=== PATIENT | female | born 1970 | race Caucasian/White ===

== ENCOUNTER → 2016-06-24 | Outpatient (CLI) | payer BC ==
[2016-06-24 14:13] VITALS: BP 141/75; PULSE 87; RESP 14; TEMP 98.2; BMI 62.4
[2016-06-24 14:56] LABS: EKG EKG PERFORMED
--- NOTE | 2016-06-24 15:12 | P.HPBAR ---
Bariatric H&P - History & Physicial H&P Date: 06/24/16 History & Physicial: Visit/CC: sleeve consult Patient initial contact: 06/10/16 Initial weight: 157.351 kg Initial weight in pounds: 346.90 Height: 5 ft 2.5 in Initial BMI: 62.4 Last weight: Current weight: 157.351 kg Current weight in pounds: 346.90 Current BMI: 62.4 [place] body weight (based on NIH guidelines): 51.029 kg Excess body weight loss: 0.0% The patient is a 46 year-old F who presents for Bariatric Assessment. Patient presents today for sleeve consultation. She has had lifetime problems obesity. Her has scant proxy 70 pounds over the last 8 years. Her BMI today is 62. She currently weighs 346 pounds. Review of Systems Constitutional: Reports as per HPI Past Medical History Past Medical History: GERD/Reflux, Osteoarthritis (OA) Additional Past Medical History / Comment(s): Degenerative disc disease L4-5, Celiac disease, urinary stress incontinence History of Any Multi-Drug Resistant Organisms: None Reported Additional Past Surgical History / Comment(s): Neuroma removed on Right foot in 1996 Past Anesthesia/Blood Transfusion Reactions: No Reported Reaction Additional Past Anesthesia/Blood Transfusion Reaction / Comm: NO blood transfusion reported Past Psychological History: No Psychological Hx Reported Smoking Status: Never smoker Past Alcohol Use History: None Reported Past Drug Use History: None Reported - Past Family History Mother Family Medical History: Diabetes Mellitus, Osteoarthritis (OA) Additional Family Medical History / Comment(s): Type 2 DM, aortic stenosis secondary to childhood rheumatic fever Father Family Medical History: No Reported History Surgical - Exam Vital Signs Temp Pulse Resp BP 98.2 F 87 14 141/75 06/24/16 14:00 06/24/16 14:00 06/24/16 14:00 06/24/16 14:00 - General well developed, no distress - Eyes PERRL - ENT normal pinna - Neck no masses - Respiratory normal expansion - Cardiovascular Rhythm: regular - Abdomen Abdomen: soft, non tender Bariatric Assessment & Plan Plan: Morbid obesity with BMI of 63. Patient will undergo EGD. She'll need to obtain insurance authorization prior to scheduling her laparoscopic sleeve gastric. She is scheduled see Dr. nieves this week. Bariatric Checklist Checklist: Plan: Checklist: EGD: 1. Hiatal hernia: 2. H. Pylori: HgbA1c: Vitamin D: Smoking: Never smoker Primary care physician referral: wilman yeager Psychiatry clearance: Cardiology clearance: Sleep study: Diet journal: VTE risk score: VTE risk level: Rehab needs at discharge:
[2016-06-24 15:28] LABS: Anisocytosis Slight; CH 23.6; CHCM 31.2; HCT 42.7 % (34.0-46.0); HDW 2.75; HGB 12.8 gm/dL (11.4-16.0); Hypochromasia Slight; MCH 22.8 pg (25.0-35.0); MCHC 29.9 g/dL (31.0-37.0); MCV 76.2 fL (80.0-100.0); Mean Platelet Volume 7.1; Microcytosis Slight; RDW 17.3 % (11.5-15.5); WBC 16.4 k/uL (3.8-10.6)
[2016-06-24 15:42] LABS: ALT 24 U/L (9-52); AST 17 U/L (14-36); Alkaline Phosphatase 83 U/L (38-126); Anion Gap 12 mmol/L; Blood Urea Nitrogen 7 mg/dL (7-17); Calcium 9.5 mg/dL (8.4-10.2); Carbon Dioxide 27 mmol/L (22-30); Chloride 103 mmol/L (98-107); Glucose 79 mg/dL (74-99); Non-African American GFR(MDRD) >60 (>60 ml/min/1.73 sqM); Potassium 4.5 mmol/L (3.5-5.1); Sodium 142 mmol/L (137-145); Total Bilirubin 0.4 mg/dL (0.2-1.3); Total Protein 7.6 g/dL (6.3-8.2)
[2016-06-24 20:23] LABS: Hemoglobin A1C 5.8 % (4.2-6.1)
== END | disposition home or self-care (01) ==
LOC: BARWHC3 13:15
PROVIDERS: ATTEND Surgery
DX: Z01.818 Encounter for other preprocedural examination (principal); E66.01 Morbid (severe) obesity due to excess calories; Z68.44 Body mass index [BMI] 60.0-69.9, adult
CPT/HCPCS: 80053; 82306; 83036; 85027; 93005; 99201

== ENCOUNTER 2016-07-05 08:05 | Day surgery (SDC) | payer BC ==
[2016-07-02 15:07] VITALS: BMI 61.6
[~2016-07-05 08:05] MED LIST: LACTATED RINGERS 1,000 ML IV SCH
[2016-07-05 08:36] VITALS: RESP 16; TEMP 98.1
[2016-07-05] MEDS ORDERED: LIDOCAINE 1% 20 ML VIAL (10MG/ML) FOR IV START INTRADERMA ONE (08:43)
[2016-07-05] MEDS ORDERED: PROPOFOL 10 MG/ML 20 ML VIAL IV ONE (09:10)
--- NOTE | 2016-07-05 09:10 | P.GSHP ---
History of Present Illness H&P Date: 07/05/16 Chief Complaint: GERD, morbid obesity This a 38-year-old female who presents today for EGD. She is undergoing workup for sleeve gastrectomy. She has a history of GERD. Her BMI is 62 - Constitutional Constitutional: Reports as per HPI Past Medical History Past Medical History: Deep Vein Thrombosis (DVT), GERD/Reflux, Osteoarthritis ( OA) Additional Past Medical History / Comment(s): Degenerative disc, Celiac disease , occ. urinary stress incontinence, hiatal hernia, uterine fibroids History of Any Multi-Drug Resistant Organisms: None Reported Additional Past Surgical History / Comment(s): Neuroma removed on Right foot Past Anesthesia/Blood Transfusion Reactions: Motion Sickness Additional Past Anesthesia/Blood Transfusion Reaction / Comment(s): . Past Psychological History: No Psychological Hx Reported Smoking Status: Never smoker Past Alcohol Use History: None Reported Past Drug Use History: None Reported - Past Family History Mother Family Medical History: No Reported History Additional Family Medical History / Comment(s): . Father Family Medical History: No Reported History Medications and Allergies Home Medications Medication Instructions Recorded Confirmed Type Carisoprodol [Soma] 500 mg PO TID PRN 06/24/16 07/05/16 History HYDROcodone/APAP 7.5-325MG [[place] 1 tab PO Q8HR PRN 06/24/16 07/05/16 History 7.5-325] Ibuprofen [Motrin] 800 mg PO Q6H PRN 06/24/16 07/02/16 History Cholecalciferol (Vitamin D3) 20,000 unit PO DAILY 07/02/16 07/05/16 History [Vitamin D3] Multivitamins, Thera [Multivitamin] 1 tab PO DAILY 07/02/16 07/05/16 History Allergies Allergy/AdvReac Type Severity Reaction Status Date / Time cefaclor [From Ceclor] Allergy Rash/Hives Verified 07/05/16 08:27 clarithromycin [From Biaxin] Allergy Rash/Hives Verified 07/05/16 08:27 egg Allergy Diarrhea Verified 07/05/16 08:27 gluten Allergy Unknown Verified 07/05/16 08:27 Milk Containing Products Allergy Diarrhea Verified 07/05/16 08:27 [Dairy] Surgical - Exam Vital Signs Temp Pulse Resp BP Pulse Ox 98.1 F 78 16 150/81 99 07/05/16 08:35 03/10/17 08:35 07/05/16 08:35 07/05/16 08:35 07/05/16 08:35 - General well developed, no distress - Eyes PERRL - ENT normal pinna - Neck no masses - Respiratory normal expansion - Cardiovascular Rhythm: regular - Abdomen Abdomen: soft, non tender Assessment and Plan Plan: GERD Morbid obesity We'll perform EGD.
--- NOTE | 2016-07-05 09:18 | P.OP ---
Date of Procedure: 07/05/16 Preoperative Diagnosis: GERD Morbid obesity Postoperative Diagnosis: Mild antral gastritis Esophageal biopsy pathology pending Procedure(s) Performed: EGD Anesthesia: MAC Surgeon: Te Goodson Pathology: other (Antrum, esophagus) Condition: stable Disposition: PACU Description of Procedure: The patient's placed on the endoscopy table lateral position. She received IV sedation. The gastroscope some placed oropharynx passed into the esophagus and into the stomach. Scope was then placed through the pylorus. The first and second portion of the duodenum appeared normal. The scope was then brought back the antrum and this appeared mildly inflamed. A biopsies was performed. The scope was then retroflexed and the remainder of the stomach appeared normal. There is no significant hiatal hernia. The GE junction was at 40 cm. The distal esophagus appeared minimally inflamed a biopsies performed. The proximal esophagus appeared normal. The scope was withdrawn for patient.
[2016-07-05 09:41] VITALS: BP 116/64; PULSE 71
== END 2016-07-05 09:59 | disposition home or self-care (01) ==
LOC: ORWHC2ENDO 08:05
PROVIDERS: ATTEND Surgery
DX: K21.0 Gastro-esophageal reflux disease with esophagitis (principal); K29.50 Unspecified chronic gastritis without bleeding; M19.90 Unspecified osteoarthritis, unspecified site; E66.01 Morbid (severe) obesity due to excess calories; Z68.44 Body mass index [BMI] 60.0-69.9, adult; Z88.1 Allergy status to other antibiotic agents; Z91.012 Allergy to eggs; Z91.02 Food additives allergy status; Z91.011 Allergy to milk products; Z79.1 Long term (current) use of non-steroidal anti-inflammatories (NSAID); Z79.899 Other long term (current) drug therapy
CPT/HCPCS: 43239; 81025; 88305; 88342; J2704

== ENCOUNTER → 2016-08-26 | Outpatient (CLI) | payer BC ==
[2016-08-26 15:26] VITALS: BP 129/63; PULSE 83; RESP 16; TEMP 98.2; BMI 63.6
--- NOTE | 2016-08-26 16:21 | P.HPBAR ---
Bariatric H&P - History & Physicial H&P Date: 08/26/16 History & Physicial: Visit/CC: Working on Criteria Patient initial contact: 06/10/16 Initial weight: 157.351 kg Initial weight in pounds: 346.90 Height: 5 ft 2.5 in Initial BMI: 62.4 Last weight: Current weight: 160.232 kg Current weight in pounds: 353.00 Current BMI: 63.6 [place] body weight (based on NIH guidelines): 51.029 kg Excess body weight loss: The patient is a 46 year-old F who presents for Bariatric Assessment. Patient presents for presurgical consultation. She is undergoing workup for sleeve gastrectomy. Had multiple problems with comorbidities related to morbid obesity. Her current BMI 64. Past Medical History Past Medical History: Deep Vein Thrombosis (DVT), GERD/Reflux, Osteoarthritis ( OA) Additional Past Medical History / Comment(s): Degenerative disc, Celiac disease , occ. urinary stress incontinence, hiatal hernia, uterine fibroids History of Any Multi-Drug Resistant Organisms: None Reported Additional Past Surgical History / Comment(s): Neuroma removed on Right foot Past Anesthesia/Blood Transfusion Reactions: Motion Sickness Additional Past Anesthesia/Blood Transfusion Reaction / Comm: . Past Psychological History: No Psychological Hx Reported Smoking Status: Never smoker Past Alcohol Use History: None Reported Past Drug Use History: None Reported - Past Family History Mother Family Medical History: No Reported History Additional Family Medical History / Comment(s): . Father Family Medical History: No Reported History Surgical - Exam Vital Signs Temp Pulse Resp BP 98.2 F 83 16 129/63 08/26/16 15:24 08/26/16 15:24 08/26/16 15:24 08/26/16 15:24 - General well developed, no distress - Eyes PERRL - ENT normal pinna - Neck no masses - Respiratory normal expansion - Cardiovascular Rhythm: regular - Abdomen Abdomen: soft, non tender Bariatric Assessment & Plan Plan: Morbid obesity with BMI 64. Patient be scheduled for sleeve gastrectomy once her insurance authorization is been performed. However the risk and benefits of the procedure with the patient. Bariatric Checklist Checklist: Plan: Checklist: EGD: 1. Hiatal hernia: 2. H. Pylori: HgbA1c: Vitamin D: Smoking: Never smoker Primary care physician referral: wilman yeager Psychiatry clearance: Cardiology clearance: Sleep study: Diet journal: VTE risk score: VTE risk level: Rehab needs at discharge:
== END | disposition home or self-care (01) ==
LOC: BARWHC3 14:25
PROVIDERS: ATTEND Surgery
DX: Z01.818 Encounter for other preprocedural examination (principal); E66.01 Morbid (severe) obesity due to excess calories; Z68.44 Body mass index [BMI] 60.0-69.9, adult
CPT/HCPCS: 99211

== ENCOUNTER → 2016-09-16 | Outpatient (CLI) | payer BC ==
[2016-09-16 14:04] VITALS: BMI 63.3
== END | disposition home or self-care (01) ==
LOC: BARWHC3 08:48
PROVIDERS: ATTEND Surgery
DX: Z71.3 Dietary counseling and surveillance (principal); E66.01 Morbid (severe) obesity due to excess calories; Z68.44 Body mass index [BMI] 60.0-69.9, adult
CPT/HCPCS: 97804

== ENCOUNTER → 2016-10-16 | Outpatient (CLI) | payer BC ==
[2016-10-16 16:29] LABS: Anisocytosis Slight; Basophils # (A) 0.1 k/uL (0-0.2); Basophils % (A) 1 %; CH 24.9; CHCM 31.3; Eosinophils # (A) 0.3 k/uL (0-0.7); Eosinophils % (A) 2 %; HCT 44.5 % (34.0-46.0); HDW 2.55; HGB 13.7 gm/dL (11.4-16.0); Hypochromasia Slight; Luc # (Auto) 0.12; Luc % (Auto) 1; Lymphocytes # (A) 1.9 k/uL (1.0-4.8); Lymphocytes % (A) 16 %; MCH 24.6 pg (25.0-35.0); MCHC 30.8 g/dL (31.0-37.0); MCV 79.7 fL (80.0-100.0); Mean Platelet Volume 6.6; Microcytosis Slight; Monocytes # (A) 0.5 k/uL (0-1.0); Monocytes % (A) 4 %; Neutrophils # (A) 9.2 k/uL (1.3-7.7); Neutrophils % (A) 76 %; RBC 5.58 m/uL (3.80-5.40); RDW 16.6 % (11.5-15.5); WBC (Perox) 12.17
[2016-10-16 16:42] LABS: ALT 32 U/L (9-52); AST 24 U/L (14-36); Alkaline Phosphatase 77 U/L (38-126); Anion Gap 12 mmol/L; Blood Urea Nitrogen 9 mg/dL (7-17); Calcium 9.6 mg/dL (8.4-10.2); Carbon Dioxide 25 mmol/L (22-30); Chloride 102 mmol/L (98-107); Glucose 88 mg/dL (74-99); Non-African American GFR(MDRD) >60 (>60 ml/min/1.73 sqM); Potassium 4.2 mmol/L (3.5-5.1); Sodium 139 mmol/L (137-145); Total Bilirubin 0.6 mg/dL (0.2-1.3); Total Protein 7.3 g/dL (6.3-8.2)
== END | disposition home or self-care (01) ==
LOC: LABPAT 15:46
PROVIDERS: ATTEND Surgery
DX: Z01.812 Encounter for preprocedural laboratory examination (principal)
CPT/HCPCS: 80053; 85025

== ENCOUNTER 2016-10-22 09:56 | Inpatient (IN) | payer BC ==
[~2016-10-22 09:56] MED LIST changes: +CLINDAMYCIN 900 MG in DEXTROSE 5% IN WATER 50 ML IVPB ONE; +DEXAMETHASONE SOD PHOSPHATE 10 MG/ML 1 ML VIAL IV ONE; +GENTAMICIN 480 MG in SODIUM CHLORIDE 0.9% 100 ML IVPB ONE; +MIDAZOLAM 2 MG/2 ML VIAL IV PRN; +SCOPOLAMINE 1.5MG/72HR PATCH TRANSDERM ONE
[2016-10-22] MEDS ORDERED: GENTAMICIN IN NACL ISO-OSM PMX 80 MG in SALINE 1 100ML.BAG IVPB STA (10:03)
[2016-10-22] MEDS ORDERED: ENOXAPARIN 40 MG/0.4 ML SYRINGE SQ STA (10:16)
[2016-10-22] MEDS: ONDANSETRON 4 MG/2 ML VIAL IVP ONE ×2 (10:20→14:12)
[2016-10-22] MEDS ORDERED: LIDOCAINE 1% 20 ML VIAL (10MG/ML) FOR IV START SQ ONE (10:29)
--- NOTE | 2016-10-22 11:13 | P.GSHP ---
History of Present Illness H&P Date: 10/22/16 Chief Complaint: Morbid obesity with severe comorbidities This is a 38-year-old female who presents today for laparoscopic sleeve gastrectomy. Patient has had lifetime problems cc. Her BMI is 61. Patient presents today for laparoscopic sleeve gastrectomy. Patient went risks of surgery including injury to the stomach liver spleen. He is also a risk of gastric staple line disruption, bleeding or scarring. - Constitutional Constitutional: Reports as per HPI Past Medical History Past Medical History: Deep Vein Thrombosis (DVT), GERD/Reflux, Osteoarthritis ( OA) Additional Past Medical History / Comment(s): DDD, Celiac disease, occ. urinary stress incontinence, hiatal hernia, uterine fibroids, had DVT 10 yrs ago after tx. for varicose veins History of Any Multi-Drug Resistant Organisms: None Reported Additional Past Surgical History / Comment(s): Neuroma removed on Right foot, recent EGD Past Anesthesia/Blood Transfusion Reactions: Motion Sickness Additional Past Anesthesia/Blood Transfusion Reaction / Comment(s): . Smoking Status: Never smoker - Past Family History Mother Family Medical History: No Reported History Additional Family Medical History / Comment(s): . Father Family Medical History: No Reported History Medications and Allergies Home Medications Medication Instructions Recorded Confirmed Type Carisoprodol [Soma] 500 mg PO TID PRN 06/24/16 10/22/16 History HYDROcodone/APAP 7.5-325MG [[place] 1 tab PO Q8HR PRN 06/24/16 10/22/16 History 7.5-325] Cholecalciferol (Vitamin D3) 20,000 unit PO DAILY 07/02/16 10/22/16 History [Vitamin D3] Multivitamins, Thera [Multivitamin] 1 tab PO DAILY 07/02/16 10/22/16 History Allergies Allergy/AdvReac Type Severity Reaction Status Date / Time cefaclor [From Ceclor] Allergy Rash/Hives Verified 10/22/16 10:15 clarithromycin [From Biaxin] Allergy Rash/Hives Verified 10/22/16 10:15 egg Allergy Diarrhea Verified 10/22/16 10:15 gluten Allergy Unknown Verified 10/22/16 10:15 Milk Containing Products Allergy Diarrhea Verified 10/22/16 10:15 [Dairy] Surgical - Exam Vital Signs Temp Pulse Resp BP Pulse Ox 98.0 F 82 16 133/76 98 10/22/16 10:17 10/22/16 10:17 10/22/16 10:17 10/22/16 10:17 10/22/16 10:17 - General well developed, no distress - Eyes PERRL - ENT normal pinna - Neck no masses - Respiratory normal expansion - Cardiovascular Rhythm: regular - Abdomen Abdomen: soft, non tender Assessment and Plan Plan: Morbid obesity with severe comorbidities. We'll perform laparoscopic sleeve gastrectomy.
[2016-10-22] MEDS ORDERED: METHYLENE BLUE 15 MG in DEXTROSE 5% IN WATER 500 ML IRRIGATION ONE ×2 (11:39)
[2016-10-22] MEDS ORDERED: HYDROmorphone (PF) 1 MG/ML ONE (12:02)
[2016-10-22] MEDS ORDERED: LIDOCAINE 1% INJ 10MG/ML (20 ML MDV) ONE (12:02)
[2016-10-22] MEDS ORDERED: SUCCINYLCHOLINE CHLORIDE 100 MG/5 ML SYR IV ONE (12:02)
[2016-10-22] MEDS ORDERED: GLYCOPYRROLATE 0.2 MG/ML 2 ML VIAL ONE (12:02)
[2016-10-22] MEDS ORDERED: ROCURONIUM BROMIDE 10 MG/ML 10 ML VIAL IV ONE (12:02)
[2016-10-22] MEDS ORDERED: MIDAZOLAM 2 MG/2 ML VIAL ONE (12:02)
[2016-10-22] MEDS ORDERED: fentaNYL (PF) 50 MCG/ML 2 ML AMP ONE (12:02)
[2016-10-22] MEDS ORDERED: PROPOFOL 10 MG/ML 20 ML VIAL IV ONE (12:02)
[2016-10-22] MEDS ORDERED: NEOSTIGMINE 1 MG/ML 10 ML VIAL ONE (12:02)
[2016-10-22] MEDS ORDERED: BUPIVACAIN-EPI 0.5%-1:200,000 30 ML VIAL SQ ONE (12:39)
[2016-10-22] MEDS ORDERED: NALOXONE 0.4 MG/ML 1 ML VIAL IV PRN (13:26)
--- NOTE | 2016-10-22 13:26 | P.OP ---
Date of Procedure: 10/22/16 Preoperative Diagnosis: Moderate obesity BMI 61 Postoperative Diagnosis: Morbid obesity Procedure(s) Performed: Laparoscopic sleeve gastrectomy. Laparoscopic repair of hiatal hernia Implants: Anesthesia: EWELINA Surgeon: Te Goodson Estimated Blood Loss (ml): 5 Pathology: other (Stomach) Condition: stable Disposition: PACU Indications for Procedure: Operative Findings: Description of Procedure: The patient was placed on the operating room table in the supine position. She received general anesthesia and then was placed in dorsal lithotomy position. Her abdomen was prepped and draped in sterile fashion. The skin incision sites were anesthetized 1% local Xylocaine. And then the skin was incised with an 11 blade in the left lateral position. Using a blade less trocar under direct visualization the peritoneal cavity was entered. The abdomen was insufflated and then a 5 mm laparoscope was placed into the peritoneal cavity. A 5 mm trocar was placed in the right epigastric, and right lateral position. A 15 mm trocar was placed in the supra-umbilical position and another 5 mm trocar was placed in the left lateral position. The left lateral lobe of the liver was retracted. The stomach was visualized. The greater curvature of the stomach was then dissected using the Harmonic scissors. The dissection occurred approximately 5 cm from the pylorus to the level of the left ellis. There was a small hiatal hernia seen. The hiatal hernia was repaired using 2-0 Ethibond suture in the retrocrural fashion. At this point a 40-Yi bougie dilator was placed the oropharynx and passed into the esophagus and into the stomach by the PASTRY MIXER. The sleeve gastrectomy was performed by using the powered echelon stapler with a seam guard buttress material. Sequential firings of the stapler were performed. The gastric remnant was then brought out through the 15 mm trocar site. The dilator was withdrawn. And a orogastric tube was replaced into the stomach. The stomach was insufflated with 200 mL of methylene blue normal saline. There was no evidence of extravasation. The abdomen was irrigated there is no bleeding seen. The Alexy-Ho device was used to close the 15 mm trocar with 0 Vicryl. Skin was closed with interrupted 3-0 Monocryl sutures once the trochars withdrawn. Dermabond dressing was applied. Patient was sent to recovery in stable condition.
[2016-10-22] MEDS ORDERED: LACTATED RINGERS 1,000 ML IV ONE (13:35)
[2016-10-22] MEDS: HYDROmorphone 1 MG/ML 1 ML SYRINGE IVP PRN ×4 (14:01→21:25)
[2016-10-22] MEDS: KETOROLAC 30 MG/ML 1 ML VIAL IVP SCH ×3 (14:20→23:50)
[2016-10-22] MEDS ORDERED: PROMETHAZINE INJ 25 MG/ML 1 ML VIAL IVPB ONE (14:24)
[2016-10-22] MEDS ORDERED: ACETAMINOPHEN IV (For NPO) 1,000 MG in EMPTY BAG 1 BAG IVPB ONE (15:00)
[2016-10-22] MEDS: ALBUTEROL NEBULIZED 2.5 MG/3 ML INHALATION SCH ×2 (15:23→19:15)
[2016-10-22] MEDS: 0.9% NACL WITH KCL 20 MEQ/L 1,000 ML IV SCH ×3 (17:04→23:50)
[2016-10-22] MEDS: ONDANSETRON 4 MG/2 ML VIAL IVP PRN (18:23)
[2016-10-22] MEDS: CLINDAMYCIN 900 MG in DEXTROSE 5% IN WATER 50 ML IVPB SCH ×2 (19:50)
[2016-10-22 20:30] VITALS: BMI 61.0
[2016-10-23] MEDS: CLINDAMYCIN 900 MG in DEXTROSE 5% IN WATER 50 ML IVPB SCH ×2 (03:47)
[2016-10-23] MEDS: KETOROLAC 30 MG/ML 1 ML VIAL IVP SCH ×3 (06:01→17:18)
[2016-10-23] MEDS: 0.9% NACL WITH KCL 20 MEQ/L 1,000 ML IV SCH (06:01)
[2016-10-23 06:34] LABS: Anisocytosis Slight; Basophils % (A) 0 %; CH 24.1; CHCM 30.1; Eosinophils # (A) 0.1 k/uL (0-0.7); Eosinophils % (A) 1 %; HCT 41.6 % (34.0-46.0); HDW 2.52; HGB 12.5 gm/dL (11.4-16.0); Hypochromasia Marked; Luc # (Auto) 0.14; Luc % (Auto) 1; Lymphocytes % (A) 6 %; MCH 24.1 pg (25.0-35.0); MCHC 29.9 g/dL (31.0-37.0); MCV 80.6 fL (80.0-100.0); Mean Platelet Volume 7.1; Monocytes # (A) 0.8 k/uL (0-1.0); Monocytes % (A) 5 %; Neutrophils # (A) 15.1 k/uL (1.3-7.7); Neutrophils % (A) 88 %; RBC 5.16 m/uL (3.80-5.40); RDW 16.5 % (11.5-15.5); WBC 17.1 k/uL (3.8-10.6); WBC (Perox) 16.39
[2016-10-23 06:45] LABS: Anion Gap 10 mmol/L; Blood Urea Nitrogen 6 mg/dL (7-17); Calcium 8.6 mg/dL (8.4-10.2); Carbon Dioxide 18 mmol/L (22-30); Chloride 110 mmol/L (98-107); Magnesium 2.1 mg/dL (1.6-2.3); Non-African American GFR(MDRD) >60 (>60 ml/min/1.73 sqM); Phosphorous 3.5 mg/dL (2.5-4.5); Sodium 138 mmol/L (137-145)
[2016-10-23] MEDS: ALBUTEROL NEBULIZED 2.5 MG/3 ML INHALATION SCH ×3 (08:19→15:44)
--- NOTE | 2016-10-23 08:54 | FL ---
EXAMINATION TYPE: FL UGI DATE OF EXAM: 10/23/2016 CLINICAL HISTORY: Status post gastric sleeve Contrast: Omnipaque 350 50 mL The patient ingested contrast without difficulty or delay. Noted are postsurgical changes of gastric sleeve. There is no evidence for leak or obstruction. Contrast is noted within the duodenum. IMPRESSION: Post-surgical change of gastric sleeve without evidence for obstruction or leak at this point in time.
[2016-10-23] MEDS ORDERED: PANTOPRAZOLE 40 MG/10 ML VIAL IV SCH (09:00)
[2016-10-23] MEDS ORDERED: ENOXAPARIN 60 MG/0.6 ML SYRINGE SQ SCH (09:00)
[2016-10-23] MEDS: ONDANSETRON 4 MG/2 ML VIAL IVP PRN (11:21)
[2016-10-23] MEDS: HYDROmorphone 1 MG/ML 1 ML SYRINGE IVP PRN ×2 (11:26→15:55)
[2016-10-23 14:49] VITALS: BP 138/73; PULSE 70; RESP 16; TEMP 96.5
[2016-10-23] MEDS ORDERED: 0.9% NACL WITH KCL 20 MEQ/L 1,000 ML IV SCH (15:00)
--- NOTE | 2016-10-23 17:43 | P.HPIM ---
History of Present Illness H&P Date: 10/23/16 Chief Complaint: Morbid obesity Caren Lr is a 38-year-old female who was admitted for laparoscopic sleeve gastrectomy. Patient has had lifetime problems with morbid obesity Her BMI is 61. Patient underwent laparoscopic sleeve gastrectomy with Dr. Goodson No reported complications Patient has a past medical history significant for deep venous thrombosis in the past was a fascial reflux disease and osteoarthritis Past Medical History Past Medical History: Deep Vein Thrombosis (DVT), GERD/Reflux, Osteoarthritis ( OA) Additional Past Medical History / Comment(s): DDD, Celiac disease, occ. urinary stress incontinence, hiatal hernia, uterine fibroids, had DVT 10 yrs ago after tx. for varicose veins History of Any Multi-Drug Resistant Organisms: None Reported Additional Past Surgical History / Comment(s): Neuroma removed on Right foot, recent EGD, LAPAROSCOPIC SLEEVE GASTRECTOMY 10/22/2016 Past Anesthesia/Blood Transfusion Reactions: Motion Sickness Additional Past Anesthesia/Blood Transfusion Reaction / Comment(s): . Past Psychological History: No Psychological Hx Reported Smoking Status: Never smoker - Past Family History Mother Family Medical History: No Reported History Additional Family Medical History / Comment(s): . Father Family Medical History: No Reported History Medications and Allergies Home Medications Medication Instructions Recorded Confirmed Type Carisoprodol [Soma] 350 mg PO BID 06/24/16 10/22/16 History HYDROcodone/APAP 7.5-325MG [[place] 1 tab PO Q8HR PRN 06/24/16 10/22/16 History 7.5-325] Cholecalciferol (Vitamin D3) 20,000 unit PO DAILY 07/02/16 10/22/16 History [Vitamin D3] Multivitamins, Thera [Multivitamin] 1 tab PO DAILY 07/02/16 10/22/16 History Allergies Allergy/AdvReac Type Severity Reaction Status Date / Time cefaclor [From Ceclor] Allergy Rash/Hives Verified 10/22/16 17:20 clarithromycin [From Biaxin] Allergy Rash/Hives Verified 10/22/16 17:20 egg Allergy Diarrhea Verified 10/22/16 17:20 gluten Allergy Unknown Verified 10/22/16 17:20 Milk Containing Products Allergy Diarrhea Verified 10/22/16 17:20 [Dairy] Physical Exam Vitals: Vital Signs Temp Pulse Pulse Pulse Resp BP Pulse Ox 10/23/16 15:46 84 70 16 10/23/16 14:48 96.5 F L 70 16 138/73 95 10/23/16 12:00 18 10/23/16 09:49 91 L 10/23/16 08:00 84 10/23/16 07:36 84 10/23/16 07:13 98.1 F 84 84 18 113/63 95 10/23/16 02:35 86 L 10/23/16 02:15 97 10/23/16 01:30 98 F 74 16 144/77 96 10/22/16 19:35 98.2 F 103 H 16 141/71 97 10/22/16 19:24 70 10/22/16 19:15 90 Intake and Output 10/23/16 10/23/16 10/23/16 06:59 14:59 22:59 Intake Total 1320 1000 Balance 1320 1000 Intake: Intake, IV Titration 1200 1000 Amount 0.9% NaCl with KCl 20 Meq 1000 /l 1,000 ml @ 125 mls/hr IV .Q8H [facility] Rx#:[id number] 0.9% NaCl with KCl 20 Meq 1200 /l 1,000 ml @ 150 mls/hr IV .Q6H40M [facility] Rx#: [id number] Oral 120 Other: Voiding Method Toilet # Voids 1 Weight 156.1 kg Patient Weight 10/24/16 06:59 Weight 156.1 kg In general patient is alert and oriented 3 in no apparent distress HEENT head normocephalic and atraumatic Neck is supple no JVD no goiter no lymphadenopathy Chest exam reveals a few scattered crackles in both lung brown no wheezing Cardiac exam reveals regular heart sounds S1 and S2 no gallops no murmurs Abdomen is soft nontender no organomegaly Extremity exam reveals minimal edema no cyanosis or clubbing Results CBC & Chem 7: 10/23/16 06:13 10/23/16 06:13 Labs: Abnormal Lab Results - Last 24 Hours (Table) 10/23/16 10/23/16 Range/Units 06:13 06:13 WBC 17.1 H (3.8-10.6) k/uL MCH 24.1 L (25.0-35.0) pg MCHC 29.9 L (31.0-37.0) g/dL RDW 16.5 H (11.5-15.5) % Neutrophils # 15.1 H (1.3-7.7) k/uL Chloride 110 H (98-107) mmol/L Carbon Dioxide 18 L (22-30) mmol/L BUN 6 L (7-17) mg/dL Thrombosis Risk Factor Assmnt - Choose All That Apply Any of the Below Risk Factors Present?: Yes Each Factor Represents 1 point: Age 41-60 years Other Risk Factors: Yes Each Risk Factor Represents 2 Points: Laparoscopic surgery Each Risk Factor Represents 3 Points: History of DVT/PE Other congenital or acquired thrombophilia - If yes, enter type in comment: Yes Each Risk Factor Represents 5 Points: Major surgery lasting over 3 hours Thrombosis Risk Factor Assessment Total Risk Factor Score: 11 Thrombosis Risk Factor Assessment Level: High Risk Assessment and Plan Plan: #1 severe morbid obesity BMI 61 patient underwent laparoscopic sleeve gastrectomy, no reported complications patient is doing well postoperatively #2 underlying history of gastroesophageal reflux disease #3 underlying history of osteoarthritis #4 remote history of DVT more than 10 years ago At this time medication and labs were reviewed continue was current management also been discharged to home today by surgery
--- NOTE | 2016-10-23 19:22 | P.DS ---
Providers Date of admission: 10/22/16 09:56 Expected date of discharge: 10/23/16 Attending physician: Te Goodson Consults: 10/22/16 13:26 Consult Physician Routine Consulting Provider: Ada Uribe Consult Reason/Comments: Medical management Do you want consulting provider notified?: Yes Primary care physician: Stated None Hospital Course: This is a 38-year-old female with morbid obesity. Her BMI 61. Patient underwent laparoscopic sleeve gastrectomy. Her postoperative stay was unremarkable. Please see hospital chart for details. Procedures: Laparoscopic sleeve gastrectomy Patient Condition at Discharge: Good Plan - Discharge Summary New Discharge Prescriptions: New HYDROcodone/APAP 7.5-325MG [[place] 7.5-325] 1 tab PO Q4H PRN #40 tab PRN Reason: Pain Ondansetron HCl [Zofran] 4 mg PO TID PRN #30 tablet PRN Reason: Nausea No Action HYDROcodone/APAP 7.5-325MG [[place] 7.5-325] 1 tab PO Q8HR PRN PRN Reason: Pain Carisoprodol [Soma] 350 mg PO BID Multivitamins, Thera [Multivitamin] 1 tab PO DAILY Cholecalciferol (Vitamin D3) [Vitamin D3] 20,000 unit PO DAILY Discharge Medication List Carisoprodol [Soma] 350 mg PO BID 06/24/16 [History] HYDROcodone/APAP 7.5-325MG [[place] 7.5-325] 1 tab PO Q8HR PRN 06/24/16 [History] Cholecalciferol (Vitamin D3) [Vitamin D3] 20,000 unit PO DAILY 07/02/16 [History ] Multivitamins, Thera [Multivitamin] 1 tab PO DAILY 07/02/16 [History] HYDROcodone/APAP 7.5-325MG [[place] 7.5-325] 1 tab PO Q4H PRN #40 tab 10/23/16 [Rx ] Ondansetron HCl [Zofran] 4 mg PO TID PRN #30 tablet 10/23/16 [Rx] Follow up Appointment(s)/Referral(s): Te Goodson MD [STAFF PHYSICIAN] - 11/04/16 2:30 pm ([facility]) Patient Instructions/Handouts: Nutrition after Bariatric Surgery (DC), Laparoscopic Sleeve Gastrectomy (DC) Activity/Diet/Wound Care/Special Instructions: Do not soak in tubs. Ok to shower POD 2. Do not drive while taking pain medications. Notify surgeon with any questions or concerns. Discharge Disposition: HOME SELF-CARE
== END 2016-10-23 18:19 | disposition home or self-care (01) | DRG 621 ==
LOC: 2ORWHC 09:56 → 3SUR 13:45
PROVIDERS: ADMIT Surgery; ATTEND Surgery
PROC: 0BQS4ZZ (ICD-10-PCS; principal; 2016-10-22 11:25)
PROC: 0BQR4ZZ (ICD-10-PCS; principal; 2016-10-22 11:25)
PROC: 0DB64Z3 Excision of Stomach, Percutaneous Endoscopic Approach, Vertical (ICD-10-PCS; principal; 2016-10-22 11:25)
DX: E66.01 Morbid (severe) obesity due to excess calories (principal); K90.0 Celiac disease; K44.9 Diaphragmatic hernia without obstruction or gangrene; Z68.44 Body mass index [BMI] 60.0-69.9, adult; K21.9 Gastro-esophageal reflux disease without esophagitis; I83.90 Asymptomatic varicose veins of unspecified lower extremity; D25.9 Leiomyoma of uterus, unspecified; M19.90 Unspecified osteoarthritis, unspecified site; N39.3 Stress incontinence (female) (male); Z88.1 Allergy status to other antibiotic agents; Z91.012 Allergy to eggs; Z86.718 Personal history of other venous thrombosis and embolism; Z91.02 Food additives allergy status; Z91.011 Allergy to milk products; Z79.891 Long term (current) use of opiate analgesic; Z79.899 Other long term (current) drug therapy; Z71.3 Dietary counseling and surveillance
CPT/HCPCS: 74240; 80051; 81025; 82310; 82565; 83735; 84100; 84520; 85025; 88307; 93005; 94640; 94760

== ENCOUNTER → 2016-11-04 | Outpatient (CLI) | payer BC ==
[2016-11-04 13:25] VITALS: BP 145/94; PULSE 98; TEMP 98.4; BMI 59.3
--- NOTE | 2016-11-04 16:36 | P.HPBAR ---
Bariatric H&P - History & Physicial H&P Date: 11/04/16 History & Physicial: Visit/CC: one year follow up Patient initial contact: 06/10/16 Initial weight: 157.351 kg Initial weight in pounds: 346.90 Height: 5 ft 2.5 in Initial BMI: 62.4 Last weight: Current weight: 149.459 kg Current weight in pounds: 329.50 Current BMI: 59.3 [place] body weight (based on NIH guidelines): 51.029 kg Excess body weight loss: 7.4% The patient is a 46 year-old F who presents for Bariatric Assessment. The patient presents today for gastric sleeve follow-up. She is approximately 2 weeks postop. She is doing quite well. She's had minimal GERD symptoms. She has no significant pain. Past Medical History Past Medical History: Deep Vein Thrombosis (DVT), GERD/Reflux, Osteoarthritis ( OA) Additional Past Medical History / Comment(s): DDD, Celiac disease, occ. urinary stress incontinence, hiatal hernia, uterine fibroids, had DVT 10 yrs ago after tx. for varicose veins History of Any Multi-Drug Resistant Organisms: None Reported Past Surgical History: Bariatric Surgery Additional Past Surgical History / Comment(s): Neuroma removed on Right foot, recent EGD, LAPAROSCOPIC SLEEVE GASTRECTOMY 10/22/2016 Past Anesthesia/Blood Transfusion Reactions: Motion Sickness Additional Past Anesthesia/Blood Transfusion Reaction / Comm: . Past Psychological History: No Psychological Hx Reported Smoking Status: Never smoker - Past Family History Mother Family Medical History: No Reported History Additional Family Medical History / Comment(s): . Father Family Medical History: No Reported History Surgical - Exam Vital Signs Temp Pulse BP 98.4 F 98 145/94 11/04/16 13:09 11/04/16 13:09 11/04/16 13:09 - General well developed, no distress - Eyes PERRL - ENT normal pinna - Neck no masses - Respiratory normal expansion - Cardiovascular Rhythm: regular - Abdomen Abdomen: soft, non tender Bariatric Assessment & Plan Plan: Patient's 2 weeks postop from sleeve gastrectomy. He is doing quite well. Patient met with the dietitian today. She'll follow-up in 2 weeks. Bariatric Checklist Checklist: Plan: Checklist: EGD: 1. Hiatal hernia: 2. H. Pylori: HgbA1c: Vitamin D: Smoking: Never smoker Primary care physician referral: wilman yeager Psychiatry clearance: Cardiology clearance: Sleep study: Diet journal: VTE risk score: VTE risk level: Rehab needs at discharge:
== END | disposition home or self-care (01) ==
LOC: BARWHC3 12:57
PROVIDERS: ATTEND Surgery
DX: Z09 Encounter for follow-up examination after completed treatment for conditions other than malignant neoplasm (principal); Z71.3 Dietary counseling and surveillance; Z98.84 Bariatric surgery status
CPT/HCPCS: 97803; 99211

== ENCOUNTER → 2016-11-18 | Outpatient (CLI) | payer BC ==
[2016-11-18 15:08] VITALS: BP 140/62; PULSE 75; TEMP 98.1; BMI 57.9
--- NOTE | 2016-11-18 17:00 | P.HPBAR ---
Bariatric H&P - History & Physicial H&P Date: 11/18/16 History & Physicial: Visit/CC: one month followup Patient initial contact: 06/10/16 Initial weight: 157.351 kg Initial weight in pounds: 346.90 Height: 5 ft 2.5 in Initial BMI: 62.4 Last weight: 324 Current weight: 146.057 kg Current weight in pounds: 322.00 Current BMI: 57.9 [place] body weight (based on NIH guidelines): 51.029 kg Excess body weight loss: 10.6% The patient is a 46 year-old F who presents for Bariatric Assessment. Patient presents today for sleep gastric follow-up. She is doing quite well. She's had some mild GERD. Past Medical History Past Medical History: Deep Vein Thrombosis (DVT), GERD/Reflux, Osteoarthritis ( OA) Additional Past Medical History / Comment(s): DDD, Celiac disease, occ. urinary stress incontinence, hiatal hernia, uterine fibroids, had DVT 10 yrs ago after tx. for varicose veins History of Any Multi-Drug Resistant Organisms: None Reported Past Surgical History: Bariatric Surgery Additional Past Surgical History / Comment(s): Neuroma removed on Right foot, recent EGD, LAPAROSCOPIC SLEEVE GASTRECTOMY 10/22/2016 Past Anesthesia/Blood Transfusion Reactions: Motion Sickness Additional Past Anesthesia/Blood Transfusion Reaction / Comm: . Past Psychological History: No Psychological Hx Reported Smoking Status: Never smoker Past Alcohol Use History: None Reported Past Drug Use History: None Reported - Past Family History Mother Family Medical History: No Reported History Additional Family Medical History / Comment(s): . Father Family Medical History: No Reported History Surgical - Exam Vital Signs Temp Pulse BP 98.1 F 75 140/62 11/18/16 15:02 11/18/16 15:02 11/18/16 15:02 - General well developed - Abdomen Abdomen: soft, non tender Bariatric Assessment & Plan Plan: Status post sleeve yesterday. Patient is doing quite well. She's had good weight loss. Her GERD symptoms are minimal be observed. Bariatric Checklist Checklist: Plan: Checklist: EGD: 1. Hiatal hernia: 2. H. Pylori: HgbA1c: Vitamin D: Smoking: Never smoker Primary care physician referral: wilman yeager Psychiatry clearance: Cardiology clearance: Sleep study: Diet journal: VTE risk score: VTE risk level: Rehab needs at discharge:
== END | disposition home or self-care (01) ==
LOC: BARWHC3 14:11
PROVIDERS: ATTEND Surgery
DX: Z71.3 Dietary counseling and surveillance (principal); K21.9 Gastro-esophageal reflux disease without esophagitis; Z86.718 Personal history of other venous thrombosis and embolism; Z98.84 Bariatric surgery status
CPT/HCPCS: 97803; 99211

== ENCOUNTER → 2017-01-13 | Outpatient (CLI) | payer BC ==
[2017-01-13 16:21] LABS: Anisocytosis Slight; CH 25.2; CHCM 31.8; HDW 2.82; HGB 11.9 gm/dL (11.4-16.0); Hypochromasia Slight; MCH 24.4 pg (25.0-35.0); MCHC 30.7 g/dL (31.0-37.0); MCV 79.5 fL (80.0-100.0); Mean Platelet Volume 7.3; Microcytosis Slight; RDW 16.7 % (11.5-15.5); WBC 11.9 k/uL (3.8-10.6)
[2017-01-13 16:31] LABS: ALT 35 U/L (9-52); AST 19 U/L (14-36); Alkaline Phosphatase 88 U/L (38-126); Anion Gap 9 mmol/L; Blood Urea Nitrogen 9 mg/dL (7-17); Calcium 9.6 mg/dL (8.4-10.2); Carbon Dioxide 27 mmol/L (22-30); Chloride 105 mmol/L (98-107); Glucose 90 mg/dL (74-99); Magnesium 2.1 mg/dL (1.6-2.3); Non-African American GFR(MDRD) >60 (>60 ml/min/1.73 sqM); Phosphorous 3.2 mg/dL (2.5-4.5); Potassium 4.7 mmol/L (3.5-5.1); Sodium 141 mmol/L (137-145); Total Bilirubin 0.3 mg/dL (0.2-1.3); Total Protein 6.7 g/dL (6.3-8.2)
[2017-01-13 17:20] LABS: Vitamin B12 866 pg/mL (239-931)
== END | disposition home or self-care (01) ==
LOC: LABWHC1 15:44
PROVIDERS: ATTEND Surgery
DX: E66.01 Morbid (severe) obesity due to excess calories (principal); E55.9 Vitamin D deficiency, unspecified
CPT/HCPCS: 36415; 80053; 82306; 82607; 82746; 83735; 84100; 84134; 84425; 84590; 85027

== ENCOUNTER → 2017-01-20 | Outpatient (CLI) | payer BC ==
--- NOTE | 2017-01-20 15:09 | P.HPBAR ---
Bariatric H&P - History & Physicial H&P Date: 01/20/17 History & Physicial: Visit/CC: Patient initial contact: 06/10/16 Initial weight: 157.351 kg Initial weight in pounds: Height: Initial BMI: Last weight: 322 Current weight: 298 Current weight in pounds: Current BMI: [place] body weight (based on NIH guidelines): Excess body weight loss: The patient is a 46 year-old F who presents for Bariatric Assessment. Patient presents today for sleeve gastrectomy follow-up. She is doing fairly well. She is last 24 pounds since her last visit. She's had some minimal GERD. Past Medical History Past Medical History: Deep Vein Thrombosis (DVT), GERD/Reflux, Osteoarthritis ( OA) Additional Past Medical History / Comment(s): DDD, Celiac disease, occ. urinary stress incontinence, hiatal hernia, uterine fibroids, had DVT 10 yrs ago after tx. for varicose veins History of Any Multi-Drug Resistant Organisms: None Reported Past Surgical History: Bariatric Surgery Additional Past Surgical History / Comment(s): Neuroma removed on Right foot, recent EGD, LAPAROSCOPIC SLEEVE GASTRECTOMY 10/22/2016 Past Anesthesia/Blood Transfusion Reactions: Motion Sickness Additional Past Anesthesia/Blood Transfusion Reaction / Comm: . Past Psychological History: No Psychological Hx Reported Smoking Status: Never smoker Past Alcohol Use History: None Reported Past Drug Use History: None Reported - Past Family History Mother Family Medical History: No Reported History Additional Family Medical History / Comment(s): . Father Family Medical History: No Reported History Surgical - Exam - General well developed, no distress - Eyes PERRL - ENT normal pinna - Abdomen Abdomen: soft, non tender Bariatric Assessment & Plan Plan: Status post sleeve gastrectomy. Patient is doing quite well. She will follow in 1 month. Her GERD symptoms are minimal and will be observed. Bariatric Checklist Checklist: Plan: Checklist: EGD: 1. Hiatal hernia: 2. H. Pylori: HgbA1c: Vitamin D: Smoking: Never smoker Primary care physician referral: wilman yeager Psychiatry clearance: Cardiology clearance: Sleep study: Diet journal: VTE risk score: VTE risk level: Rehab needs at discharge:
[2017-01-20 15:47] VITALS: BP 124/68; PULSE 76; TEMP 98.7; BMI 53.6
== END | disposition home or self-care (01) ==
LOC: BARWHC3 14:49
PROVIDERS: ATTEND Surgery
DX: Z09 Encounter for follow-up examination after completed treatment for conditions other than malignant neoplasm (principal); E55.9 Vitamin D deficiency, unspecified; K21.9 Gastro-esophageal reflux disease without esophagitis; Z98.84 Bariatric surgery status; Z71.3 Dietary counseling and surveillance
CPT/HCPCS: 97802; 99211

== ENCOUNTER → 2017-05-15 | Outpatient (CLI) | payer BC ==
[2017-05-15 08:41] LABS: Anisocytosis Slight; HCT 44.8 % (34.0-46.0); MCH 25.3 pg (25.0-35.0); MCHC 31.2 g/dL (31.0-37.0); MCV 81.3 fL (80.0-100.0); Mean Platelet Volume 6.6; Platelet Count 427 k/uL (150-450); RBC 5.52 m/uL (3.80-5.40); RDW 16.5 % (11.5-15.5); WBC 8.4 k/uL (3.8-10.6)
[2017-05-15 08:56] LABS: ALT 31 U/L (9-52); AST 17 U/L (14-36); Albumin 4.1 g/dL (3.5-5.0); Alkaline Phosphatase 75 U/L (38-126); Anion Gap 10 mmol/L; Blood Urea Nitrogen 7 mg/dL (7-17); Carbon Dioxide 28 mmol/L (22-30); Chloride 106 mmol/L (98-107); Glucose 95 mg/dL (74-99); Potassium 4.3 mmol/L (3.5-5.1); Sodium 144 mmol/L (137-145); Total Bilirubin 0.4 mg/dL (0.2-1.3)
[2017-05-15 15:28] LABS: Iron Saturation 12.62 (12.00-45.00)
[2017-05-15 15:29] LABS: Folate, Serum 10.8 ng/mL
== END | disposition home or self-care (01) ==
LOC: LABWHC1 08:15
PROVIDERS: ATTEND Surgery
DX: E66.01 Morbid (severe) obesity due to excess calories (principal); E44.0 Moderate protein-calorie malnutrition; E55.9 Vitamin D deficiency, unspecified
CPT/HCPCS: 36415; 80053; 82306; 82607; 82746; 83540; 83550; 84134; 84425; 84443; 85027

== ENCOUNTER → 2017-05-19 | Outpatient (CLI) | payer BC ==
[2017-05-19 13:38] VITALS: RESP 16; BMI 46.5
--- NOTE | 2017-05-19 16:33 | P.HPBAR ---
Bariatric H&P - History & Physicial H&P Date: 05/19/17 History & Physicial: Visit/CC: Sleeve follow-up Patient initial contact: 06/10/16 Initial weight: 157.351 kg Initial weight in pounds: 346.90 Height: 5 ft 2.5 in Initial BMI: 62.4 Last weight: Current weight: 117.197 kg Current weight in pounds: 258.00 Current BMI: 46.5 [place] body weight (based on NIH guidelines): 51.029 kg Excess body weight loss: 37.9% The patient is a 47 year-old F who presents for Bariatric Assessment. She presents today for sleeve gastrectomy follow-up. She is doing very well. She' s lost 40 pounds since her last visit. She's had some minor issues of hypertension. He also had some minimal GERD. Past Medical History Past Medical History: Deep Vein Thrombosis (DVT), GERD/Reflux, Osteoarthritis ( OA) Additional Past Medical History / Comment(s): DDD, Celiac disease, occ. urinary stress incontinence, hiatal hernia, uterine fibroids, had DVT 10 yrs ago after tx. for varicose veins History of Any Multi-Drug Resistant Organisms: None Reported Past Surgical History: Bariatric Surgery Additional Past Surgical History / Comment(s): Neuroma removed on Right foot, recent EGD, LAPAROSCOPIC SLEEVE GASTRECTOMY 10/22/2016 Past Anesthesia/Blood Transfusion Reactions: Motion Sickness Additional Past Anesthesia/Blood Transfusion Reaction / Comm: . Past Psychological History: No Psychological Hx Reported Smoking Status: Never smoker Past Alcohol Use History: None Reported Past Drug Use History: None Reported - Past Family History Mother Family Medical History: No Reported History Additional Family Medical History / Comment(s): . Father Family Medical History: No Reported History Surgical - Exam Vital Signs Resp 16 05/19/17 13:35 - General well developed, no distress - Eyes PERRL - ENT normal pinna - Neck no masses - Respiratory normal expansion - Cardiovascular Rhythm: regular - Abdomen Abdomen: soft, non tender Bariatric Assessment & Plan Plan: Post sleeve gastrectomy. Patient has lost approximately 100 pounds since her surgery. He is doing very well. Her GERD is minimal will be observed. She'll follow-up in 8 weeks. Bariatric Checklist Checklist: Plan: Checklist: EGD: 1. Hiatal hernia: 2. H. Pylori: HgbA1c: Vitamin D: Smoking: Never smoker Primary care physician referral: wilman yeager Psychiatry clearance: Cardiology clearance: Sleep study: Diet journal: VTE risk score: VTE risk level: Rehab needs at discharge:
== END | disposition home or self-care (01) ==
LOC: BARWHC3 12:55
PROVIDERS: ATTEND Surgery
DX: Z48.815 Encounter for surgical aftercare following surgery on the digestive system (principal); K21.9 Gastro-esophageal reflux disease without esophagitis; E55.9 Vitamin D deficiency, unspecified; E44.0 Moderate protein-calorie malnutrition; Z71.3 Dietary counseling and surveillance; Z98.84 Bariatric surgery status; Z68.42 Body mass index [BMI] 45.0-49.9, adult
CPT/HCPCS: 99211

== ENCOUNTER 2017-09-21 18:20 | Emergency (ER) | payer BC ==
[2017-09-21] MEDS ORDERED: PANTOPRAZOLE 40 MG/10 ML VIAL IVP STA (18:55)
[2017-09-21] MEDS ORDERED: SODIUM CHLORIDE 0.9% 1,000 ML IV STA (18:55)
[2017-09-21] MEDS ORDERED: RX INFO: IV CONTRAST WAS GIVEN 1 EACH MISC MISCELLANE PRN (18:55)
[2017-09-21] MEDS ORDERED: ONDANSETRON 4 MG/2 ML VIAL IVP STA (18:55)
[2017-09-21] MEDS ORDERED: IOPAMIDOL-300 CONTRAST 30 ML VIAL (ORAL USE) PO PRN (18:55)
--- NOTE | 2017-09-21 19:18 | ED ---
General Adult HPI - General Chief complaint: Abdominal Pain Stated complaint: gallbladder Time Seen by Provider: 09/21/17 18:47 Source: patient, family, RN notes reviewed Mode of arrival: ambulatory Limitations: no limitations - History of Present Illness Initial comments: Chief complaint history of present illness a 47-year-old female complaint of dry heaving and epigastric pain starting approximately 3 hours ago. Patient reports she had a sleeve surgery for bariatric purposes 11 months ago. Patient reports she ate eggs and whitehead and milk. She does report that she has ALLERGIES to eggs and milk containing products. - Related Data Home Medications Medication Instructions Recorded Confirmed Omeprazole [PriLOSEC] 1 cap PO DAILY 11/18/16 05/19/17 Previous Rx's Medication Instructions Recorded Ondansetron Odt [Zofran Odt] 4 mg PO Q8HR PRN #10 tab 09/21/17 Allergies Allergy/AdvReac Type Severity Reaction Status Date / Time cefaclor [From Ceclor] Allergy Rash/Hives Verified 09/21/17 18:32 clarithromycin [From Biaxin] Allergy Rash/Hives Verified 09/21/17 18:32 egg Allergy Diarrhea Verified 09/21/17 18:32 gluten Allergy Unknown Verified 09/21/17 18:32 Milk Containing Products Allergy Diarrhea Verified 09/21/17 18:32 [Dairy] Review of Systems ROS Statement: Those systems with pertinent positive or pertinent negative responses have been documented in the HPI. Review of systems no headache or visual acuity changes no chest pain. She has epigastric discomfort with dry heaves. No back pain. Unable to vomit just dry heaves. Bowel movements normal. No neuro deficits all systems are reviewed. Past medical problems significant for varicose veins, GERD, arthritis, celiac disease. Surgeries left months ago patient had a bariatric sleeve placed per bariatric purposes. Also neuroma on her foot. Patient's family is. Patient has ALLERGIES to cefaclor clarithromycin egg gluten milk containing products. She reports that she eats few eggs and the little bit of milk she has not trouble though she did eat at this morning along with whitehead. Report she's never had gallbladder issues since the surgery but 25 years ago she did have problems with her gallbladder. ROS Other: All systems not noted in ROS Statement are negative. Past Medical History Past Medical History: Deep Vein Thrombosis (DVT), GERD/Reflux, Osteoarthritis ( OA) Additional Past Medical History / Comment(s): DDD, Celiac disease, occ. urinary stress incontinence, hiatal hernia, uterine fibroids, had DVT 10 yrs ago after tx. for varicose veins History of Any Multi-Drug Resistant Organisms: None Reported Past Surgical History: Bariatric Surgery Additional Past Surgical History / Comment(s): Neuroma removed on Right foot, recent EGD, LAPAROSCOPIC SLEEVE GASTRECTOMY 10/22/2016 Past Anesthesia/Blood Transfusion Reactions: Motion Sickness Additional Past Anesthesia/Blood Transfusion Reaction / Comment(s): . Past Psychological History: No Psychological Hx Reported Smoking Status: Never smoker Past Alcohol Use History: None Reported Past Drug Use History: None Reported - Past Family History Mother Family Medical History: No Reported History Additional Family Medical History / Comment(s): . Father Family Medical History: No Reported History General Exam - General Exam Comments Initial Comments: General: The patient is awake and alert, mild to moderate distress with dry heaving and epigastric pain. The patient had bariatric sleeve surgery 11 months ago. She did eating greasy meal this morning. Vital signs temperature 98.7 pulse 72 respiratory rate 17 pulse ox R percent room air blood pressure 169/78. Eye: Pupils are equal, round and reactive to light, extra-ocular movements are intact ; there is normal conjunctiva bilaterally. No signs of icterus. Ears, nose, mouth and throat: There are moist mucous membranes and no oral lesions. Neck: The neck is supple, there is no tenderness. Cardiovascular: There is a regular rate and rhythm. No murmur, rub or gallop is appreciated. Respiratory: Lungs are clear to auscultation, respirations are non-labored, breath sounds are equal. No wheezes, stridor, rales, or rhonchi. Gastrointestinal: Epigastric discomfort. Nausea with dry heaves. No right upper quadrant pain. Back: There is no tenderness to palpation in the midline. There is no obvious deformity. No rashes noted. Musculoskeletal: Normal ROM, no tenderness, There is no pedal edema. There is no calf tenderness or swelling. Sensation intact. Neurological: No neuro deficits Skin: Skin is warm and dry and no rashes or lesions are noted. Psychiatric: Cooperative Limitations: no limitations Course Vital Signs 09/21/17 09/21/17 18:30 20:32 Temperature 98.7 F 97.7 F Pulse Rate 72 54 L Respiratory 17 18 Rate Blood Pressure 169/78 111/53 O2 Sat by Pulse 100 98 Oximetry Medical Decision Making - Medical Decision Making Medical decision making; is a 47-year-old female who reports that after having had whitehead and eggs. She had some vomiting. Patient also reports that she has ALLERGIES to milk and eggs but she can take it on occasion small amounts. The patient had bariatric surgery sleeve 11 months ago. She was dry heaving today. Complaining of epigastric pain. Labs show white count of 11.5 hemoglobin 13 hematocrit 41 with a potassium 4.0. BUN 8 creatinine 0.6 with GFR greater than 90. AST 123 ALT 76. Amylase lipase normal limits. Bilirubin normal. Stat CT bariatric protocol was done with oral contrast reviewed by radiologist his findings include liver normal, spleen normal, pancreas normal, adrenal glands, normal. Gallbladder normal. Kidneys, no masses are evident. No hydronephrosis is present. No cysts are present. Delayed images were obtained through the kidneys, which remained unremarkable. Right kidney is somewhat lower than the left. Aorta normal. Inferior vena cava normal. CT pelvis appendix and normal as visualized. bladder decompressed limiting the evaluation. Final impressionis;no abnormality to account for upper abdominal pain. As read by Dr. Mayberry On recheck patient reports she feels much better. No nausea no vomiting no pain. We discussed symptoms at this time the patient will be placed on Zofran to control nausea. Advised to stay away from greasy fatty foods. We did discuss possible biliary colic-type attack and/or her own stated adverse reaction to eggs milk products area advised to call follow-up with family physician in general surgeon as needed or return emergency room as needed. - Lab Data Result diagrams: 09/21/17 20:29 09/21/17 20:29 Lab Results 09/21/17 09/21/17 09/21/17 Range/Units 20:29 20:29 20:29 WBC 11.5 H (3.8-10.6) k/uL RBC 4.86 (3.80-5.40) m/uL Hgb 13.5 (11.4-16.0) gm/dL Hct 41.1 (34.0-46.0) % MCV 84.5 (80.0-100.0) fL MCH 27.7 (25.0-35.0) pg MCHC 32.7 (31.0-37.0) g/dL RDW 14.7 (11.5-15.5) % Plt Count 304 (150-450) k/uL Neutrophils % 84 % Lymphocytes % 9 % Monocytes % 5 % Eosinophils % 1 % Basophils % 0 % Neutrophils # 9.7 H (1.3-7.7) k/uL Lymphocytes # 1.1 (1.0-4.8) k/uL Monocytes # 0.6 (0-1.0) k/uL Eosinophils # 0.1 (0-0.7) k/uL Basophils # 0.0 (0-0.2) k/uL Sodium 142 (137-145) mmol/L Potassium 4.0 (3.5-5.1) mmol/L Chloride 109 H (98-107) mmol/L Carbon Dioxide 21 L (22-30) mmol/L Anion Gap 12 mmol/L BUN 8 (7-17) mg/dL Creatinine 0.60 (0.52-1.04) mg/dL Est GFR (CKD-EPI)AfAm >90 (>60 ml/min/1.73 sqM) Est GFR (CKD-EPI)NonAf >90 (>60 ml/min/1.73 sqM) Glucose 98 (74-99) mg/dL Plasma Lactic Acid Jose Enrique 1.0 (0.7-2.0) mmol/L Calcium 8.6 (8.4-10.2) mg/dL Total Bilirubin 0.3 (0.2-1.3) mg/dL AST 123 H (14-36) U/L ALT 76 H (9-52) U/L Alkaline Phosphatase 75 (38-126) U/L Total Protein 6.0 L (6.3-8.2) g/dL Albumin 3.5 (3.5-5.0) g/dL Amylase 32 (30-110) U/L Lipase 106 (23-300) U/L Disposition Clinical Impression: Colicky epigastric pain Disposition: HOME SELF-CARE Condition: Fair Instructions: Abdominal Pain (ED) Additional Instructions: Be careful with greasy fatty foods for diet, rate about gallbladder disease. Follow-up family physician in general surgeon. Prescriptions: Ondansetron Odt [Zofran Odt] 4 mg PO Q8HR PRN #10 tab PRN Reason: Nausea vomiting Is patient prescribed a controlled substance at d/c from ED?: No Referrals: Genesis Hamilton DO [Primary Care Provider] - 1-2 days Time of Disposition: 22:14
--- NOTE | 2017-09-21 20:06 | CT ---
EXAMINATION TYPE: CT abdomen pelvis w con DATE OF EXAM: 09/21/2017 COMPARISON: NONE INDICATION: Upper abdominal pain today DLP: 1912.5 mGycm, Automated exposure control for dose reduction was used. CONTRAST: 100 mL of Isovue 300. Study performed with Oral Contrast TECHNIQUE: Axial images were obtained from above the diaphragm to the pubic rami in the axial plane a t 5 mm thick sections. Reconstructed images are reviewed on the computer in the coronal plane. FINDINGS: Limited CT sections are obtained the lung bases. The lung bases are clear. There is some reflux int o the distal esophagus. CT ABDOMEN: Liver: Normal Spleen: Normal Pancreas: Normal Adrenal glands: The adrenal glands are normal. Gallbladder: Normal Kidneys: No masses are evident. No hydronephrosis is present. No cysts are present. Delayed images were obtained through the kidneys, which remain unremarkable. Right kidney is a somewhat lower than the left. Aorta: Normal Inferior vena cava: Normal. CT PELVIS: Loops of bowel within the abdomen and pelvis are normal. Bowel lacking significant oral contrast limiting their evaluation. Appendix: Normal as visualized. Urinary bladder: Decompressed with limited evaluation. Genitourinary structures: Uterus is bulky and contains a large coarse calcification compatible with c alcified fibroid. These 2 foci are present. Adnexal regions are clear. Osseous structures: No suspicious lytic or sclerotic lesions. Degenerative disc changes are present L 5-S1. IMPRESSIONS: 1. No suspicious abnormality to account for upper abdominal pain.
[2017-09-21 20:48] LABS: Basophils % (A) 0 %; Eosinophils # (A) 0.1 k/uL (0-0.7); Eosinophils % (A) 1 %; HCT 41.1 % (34.0-46.0); HGB 13.5 gm/dL (11.4-16.0); Lymphocytes # (A) 1.1 k/uL (1.0-4.8); Lymphocytes % (A) 9 %; MCH 27.7 pg (25.0-35.0); MCHC 32.7 g/dL (31.0-37.0); MCV 84.5 fL (80.0-100.0); Mean Platelet Volume 6.9; Monocytes # (A) 0.6 k/uL (0-1.0); Monocytes % (A) 5 %; Neutrophils # (A) 9.7 k/uL (1.3-7.7); Neutrophils % (A) 84 %; Platelet Count 304 k/uL (150-450); RBC 4.86 m/uL (3.80-5.40); RDW 14.7 % (11.5-15.5); WBC 11.5 k/uL (3.8-10.6)
[2017-09-21 20:58] LABS: ALT 76 U/L (9-52); AST 123 U/L (14-36); Albumin 3.5 g/dL (3.5-5.0); Alkaline Phosphatase 75 U/L (38-126); Amylase 32 U/L (30-110); Anion Gap 12 mmol/L; Blood Urea Nitrogen 8 mg/dL (7-17); Calcium 8.6 mg/dL (8.4-10.2); Carbon Dioxide 21 mmol/L (22-30); Chloride 109 mmol/L (98-107); Glucose 98 mg/dL (74-99); Lipase 106 U/L (23-300); Sodium 142 mmol/L (137-145); Total Bilirubin 0.3 mg/dL (0.2-1.3)
[2017-09-21 21:03] VITALS: RESP 18
[2017-09-21 22:30] VITALS: BP 112/53; PULSE 64; TEMP 98.1
== END 2017-09-21 22:33 | disposition home or self-care (01) ==
LOC: EC 18:20
DX: R10.13 Epigastric pain (principal); R11.10 Vomiting, unspecified; K21.9 Gastro-esophageal reflux disease without esophagitis; Z86.718 Personal history of other venous thrombosis and embolism; Z87.19 Personal history of other diseases of the digestive system; Z98.84 Bariatric surgery status; Z79.899 Other long term (current) drug therapy; Z88.1 Allergy status to other antibiotic agents; Z91.011 Allergy to milk products; Z91.012 Allergy to eggs; Z91.018 Allergy to other foods
CPT/HCPCS: 36415; 80053; 82150; 83605; 83690; 85025; 74177; 99284; 96374; 96375; 96361; J2405; C9113; Q9967

== ENCOUNTER 2017-12-01 23:33 | Emergency (ER) | payer BC ==
[2017-12-02] MEDS ORDERED: MAG HYDROX/AL HYDROX/SIMETH 30 ML, HYOSCYAMINE ELIXIR 10 ML, CIMETIDINE HCL 300 MG, LID... PO STA ×4 (00:31)
[2017-12-02] MEDS ORDERED: ONDANSETRON 4 MG/2 ML VIAL IVP STA (00:31)
[2017-12-02] MEDS ORDERED: SODIUM CHLORIDE 0.9% 1,000 ML IV ONE (00:32)
[2017-12-02 00:42] LABS: Basophils % (A) 0 %; Eosinophils # (A) 0.1 k/uL (0-0.7); Eosinophils % (A) 1 %; HCT 42.1 % (34.0-46.0); HGB 13.7 gm/dL (11.4-16.0); Lymphocytes # (A) 0.9 k/uL (1.0-4.8); Lymphocytes % (A) 9 %; MCHC 32.5 g/dL (31.0-37.0); MCV 83.2 fL (80.0-100.0); Mean Platelet Volume 6.7; Monocytes # (A) 0.5 k/uL (0-1.0); Monocytes % (A) 5 %; Neutrophils # (A) 8.6 k/uL (1.3-7.7); Neutrophils % (A) 84 %; Platelet Count 377 k/uL (150-450); RBC 5.06 m/uL (3.80-5.40); RDW 13.5 % (11.5-15.5); WBC 10.3 k/uL (3.8-10.6)
[2017-12-02 00:58] LABS: ALT 187 U/L (9-52); AST 285 U/L (14-36); Albumin 4.3 g/dL (3.5-5.0); Alkaline Phosphatase 114 U/L (38-126); Amylase 40 U/L (30-110); Anion Gap 7 mmol/L; Blood Urea Nitrogen 11 mg/dL (7-17); Calcium 9.4 mg/dL (8.4-10.2); Carbon Dioxide 30 mmol/L (22-30); Chloride 103 mmol/L (98-107); Glucose 158 mg/dL (74-99); Lipase 96 U/L (23-300); Potassium 4.3 mmol/L (3.5-5.1); Sodium 140 mmol/L (137-145); Total Bilirubin 0.6 mg/dL (0.2-1.3); Total Protein 7.1 g/dL (6.3-8.2)
--- NOTE | 2017-12-02 01:14 | ED ---
Abdominal Pain HPI - General Chief Complaint: Abdominal Pain Stated Complaint: ABD PAIN Time Seen by Provider: 12/01/17 23:41 Source: patient Mode of arrival: ambulatory Limitations: no limitations - History of Present Illness Initial Comments: This patient is a 47-year-old woman who presents to be evaluated for epigastric abdominal pain that started approximately 2 hours ago. She indicates that the pain is constant, moderately severe, aching. She has not discovered anything that makes it get better or worse. She has similar episode and was seen here and had relief after being given medication today IV. The patient states she also had a workup that time included a CT and she was told that everything looked normal. MD Complaint: abdominal pain -: hour(s) Location: epigastric Radiation: none Severity: moderate Quality: aching Consistency: constant Improves With: nothing Worsens With: nothing Associated Symptoms: nausea, vomiting - Related Data Home Medications Medication Instructions Recorded Confirmed Omeprazole [PriLOSEC] 1 cap PO DAILY 11/18/16 05/19/17 Previous Rx's Medication Instructions Recorded Ondansetron Odt [Zofran Odt] 4 mg PO Q8HR PRN #10 tab 09/21/17 Hydrocodone/Acetaminophen [[place] 1 each PO Q6HR PRN #12 tab 12/02/17 5-325] Ondansetron Odt [Zofran ODT] 4 mg PO Q8HR PRN #10 tab 12/02/17 Allergies Allergy/AdvReac Type Severity Reaction Status Date / Time cefaclor [From Ceclor] Allergy Rash/Hives Verified 12/01/17 23:36 clarithromycin [From Biaxin] Allergy Rash/Hives Verified 12/01/17 23:36 egg Allergy Diarrhea Verified 12/01/17 23:36 gluten Allergy Unknown Verified 12/01/17 23:36 Milk Containing Products Allergy Diarrhea Verified 12/01/17 23:36 [Dairy] Review of Systems ROS Statement: Those systems with pertinent positive or pertinent negative responses have been documented in the HPI. ROS Other: All systems not noted in ROS Statement are negative. Constitutional: Denies: fever, chills Respiratory: Denies: cough, dyspnea Cardiovascular: Denies: chest pain, palpitations, edema Gastrointestinal: Reports: as per HPI, abdominal pain, nausea, vomiting. Denies : diarrhea, hematemesis, melena, hematochezia Genitourinary: Denies: dysuria, hematuria Musculoskeletal: Denies: back pain Skin: Denies: rash Neurological: Denies: headache, weakness, numbness Past Medical History Past Medical History: Deep Vein Thrombosis (DVT), GERD/Reflux, Osteoarthritis ( OA) Additional Past Medical History / Comment(s): DDD, Celiac disease, occ. urinary stress incontinence, hiatal hernia, uterine fibroids, had DVT 10 yrs ago after tx. for varicose veins History of Any Multi-Drug Resistant Organisms: None Reported Past Surgical History: Bariatric Surgery Additional Past Surgical History / Comment(s): Neuroma removed on Right foot, recent EGD, LAPAROSCOPIC SLEEVE GASTRECTOMY 10/22/2016 Past Anesthesia/Blood Transfusion Reactions: Motion Sickness Additional Past Anesthesia/Blood Transfusion Reaction / Comment(s): . Past Psychological History: No Psychological Hx Reported Smoking Status: Never smoker Past Alcohol Use History: None Reported Past Drug Use History: None Reported - Past Family History Mother Family Medical History: No Reported History Additional Family Medical History / Comment(s): . Father Family Medical History: No Reported History General Exam Limitations: no limitations General appearance: alert, in no apparent distress, obese Head exam: Present: atraumatic Eye exam: Present: normal appearance. Absent: scleral icterus, conjunctival injection ENT exam: Present: normal oropharynx Respiratory exam: Present: normal lung sounds bilaterally. Absent: respiratory distress, wheezes, rales, rhonchi, stridor Cardiovascular Exam: Present: regular rate, normal rhythm, normal heart sounds. Absent: systolic murmur, diastolic murmur, rubs, gallop GI/Abdominal exam: Present: soft, tenderness (Minimal epigastric tenderness without rebound or guarding), normal bowel sounds. Absent: distended, guarding , rebound, rigid, mass, pulsatile mass, hernia Extremities exam: Present: normal inspection, normal capillary refill. Absent: pedal edema, calf tenderness Back exam: Present: normal inspection. Absent: CVA tenderness (R), CVA tenderness (L) Neurological exam: Present: alert Skin exam: Present: warm, dry, intact, normal color. Absent: rash Course Vital Signs 12/01/17 12/02/17 12/02/17 23:34 01:19 02:57 Temperature 98.1 F 98.7 F Pulse Rate 63 55 L 54 L Respiratory 16 18 17 Rate Blood Pressure 164/80 154/68 109/58 O2 Sat by Pulse 100 98 99 Oximetry Medical Decision Making - Lab Data Result diagrams: 12/01/17 23:54 12/01/17 23:54 Lab Results 12/01/17 12/01/17 Range/Units 23:54 23:54 WBC 10.3 (3.8-10.6) k/uL RBC 5.06 (3.80-5.40) m/uL Hgb 13.7 (11.4-16.0) gm/dL Hct 42.1 (34.0-46.0) % MCV 83.2 (80.0-100.0) fL MCH 27.0 (25.0-35.0) pg MCHC 32.5 (31.0-37.0) g/dL RDW 13.5 (11.5-15.5) % Plt Count 377 (150-450) k/uL Neutrophils % 84 % Lymphocytes % 9 % Monocytes % 5 % Eosinophils % 1 % Basophils % 0 % Neutrophils # 8.6 H (1.3-7.7) k/uL Lymphocytes # 0.9 L (1.0-4.8) k/uL Monocytes # 0.5 (0-1.0) k/uL Eosinophils # 0.1 (0-0.7) k/uL Basophils # 0.0 (0-0.2) k/uL Sodium 140 (137-145) mmol/L Potassium 4.3 (3.5-5.1) mmol/L Chloride 103 (98-107) mmol/L Carbon Dioxide 30 (22-30) mmol/L Anion Gap 7 mmol/L BUN 11 (7-17) mg/dL Creatinine 0.60 (0.52-1.04) mg/dL Est GFR (CKD-EPI)AfAm >90 (>60 ml/min/1.73 sqM) Est GFR (CKD-EPI)NonAf >90 (>60 ml/min/1.73 sqM) Glucose 158 H (74-99) mg/dL Calcium 9.4 (8.4-10.2) mg/dL Total Bilirubin 0.6 (0.2-1.3) mg/dL AST 285 H (14-36) U/L ALT 187 H (9-52) U/L Alkaline Phosphatase 114 (38-126) U/L Total Protein 7.1 (6.3-8.2) g/dL Albumin 4.3 (3.5-5.0) g/dL Amylase 40 (30-110) U/L Lipase 96 (23-300) U/L Disposition Clinical Impression: Abdominal pain, Biliary colic Disposition: HOME SELF-CARE Condition: Good Instructions: Biliary Colic (ED), Abdominal Pain (ED) Prescriptions: Hydrocodone/Acetaminophen [[place] 5-325] 1 each PO Q6HR PRN #12 tab PRN Reason: Pain Ondansetron Odt [Zofran ODT] 4 mg PO Q8HR PRN #10 tab PRN Reason: Nausea Is patient prescribed a controlled substance at d/c from ED?: Yes When asked, does pt state using other controlled substances?: No If prescribed controlled substance>3 days was MAPS reviewed?: Prescribed <3 Days If opioid is for acute pain is fill amount 7 days or less?: Yes If Rx opioid, was Start Talking consent form obtained?: Yes Referrals: Genesis Hamilton DO [Primary Care Provider] - 1-2 days
[2017-12-02] MEDS ORDERED: FAMOTIDINE 20 MG/2 ML VIAL IV STA (01:45)
--- NOTE | 2017-12-02 02:13 | US ---
EXAMINATION TYPE: US abdomen limited DATE OF EXAM: 12/02/2017 COMPARISON: NONE CLINICAL HISTORY: attention biliary tract. RUQ pain EXAM MEASUREMENTS: Liver Length: 17.5 cm Gallbladder Wall: 0.45 cm CBD: 0.64 cm Right Kidney: 9.9 x 5.2 x 4.8 cm Pancreas: Tail obscured by overlying bowel gas Liver: wnl Gallbladder: Stones seen thickened wall Evidence for sonographic Landeros's sign: No CBD: Upper limits. Right Kidney: wnl Gallstones seen with thickened wall. CBD upper limits. IMPRESSION: There are multiple gallstones. No dilated ducts. Mild gallbladder wall thickening is susp icious for cholecystitis.
[2017-12-02 02:57] VITALS: RESP 17
[2017-12-02 04:09] VITALS: BP 123/56; PULSE 52; TEMP 98.1
== END 2017-12-02 04:13 | disposition home or self-care (01) ==
LOC: EC 23:33
DX: K80.50 Calculus of bile duct without cholangitis or cholecystitis without obstruction (principal); K21.9 Gastro-esophageal reflux disease without esophagitis; Z79.899 Other long term (current) drug therapy; Z88.1 Allergy status to other antibiotic agents; Z91.012 Allergy to eggs; Z91.011 Allergy to milk products; Z91.048 Other nonmedicinal substance allergy status; Z98.84 Bariatric surgery status
CPT/HCPCS: 36415; 80053; 82150; 83690; 85025; 76705; 99284; 96374; 96375; 96361; J2405

== ENCOUNTER 2017-12-05 06:38 | Day surgery (SDC) | payer BC ==
[2017-12-03 15:37] VITALS: BMI 40.7
[~2017-12-05 06:38] MED LIST changes: -GENTAMICIN 480 MG in SODIUM CHLORIDE 0.9% 100 ML IVPB ONE; +HEPARIN SODIUM,PORCINE 5,000 UNIT/ML 1 ML VIAL SQ ONE; +ONDANSETRON 4 MG/2 ML VIAL IVP ONE; +fentaNYL (PF) 50 MCG/ML 2 ML AMP IV PRN
--- NOTE | 2017-12-05 08:03 | P.GSHP ---
History of Present Illness H&P Date: 12/05/17 Chief Complaint: Right upper quadrant pain This a 46-year-old female who presents today for laparoscopic cholecystectomy. Patient has had issues with right quadrant pain. Her recent ultrasound shows lithiasis. Past Medical History Past Medical History: Deep Vein Thrombosis (DVT), GERD/Reflux, Osteoarthritis ( OA) Additional Past Medical History / Comment(s): DDD, Celiac disease, occ. urinary stress incontinence, hiatal hernia, uterine fibroids, had DVT 10 yrs ago after tx. for varicose veins History of Any Multi-Drug Resistant Organisms: None Reported Past Surgical History: Bariatric Surgery Additional Past Surgical History / Comment(s): Neuroma removed on Right foot, recent EGD, LAPAROSCOPIC SLEEVE GASTRECTOMY 10/22/2016 Past Anesthesia/Blood Transfusion Reactions: Motion Sickness Additional Past Anesthesia/Blood Transfusion Reaction / Comment(s): . Smoking Status: Never smoker - Past Family History Mother Family Medical History: No Reported History Additional Family Medical History / Comment(s): . Father Family Medical History: No Reported History Medications and Allergies Home Medications Medication Instructions Recorded Confirmed Type Omeprazole [PriLOSEC] 1 cap PO DAILY 11/18/16 12/05/17 History Ondansetron Odt [Zofran Odt] 4 mg PO Q8HR PRN #10 tab 09/21/17 12/05/17 Rx Hydrocodone/Acetaminophen [[place] 1 each PO Q6HR PRN #12 tab 12/02/17 12/05/17 Rx 5-325] Allergies Allergy/AdvReac Type Severity Reaction Status Date / Time cefaclor [From Ceclor] Allergy Rash/Hives Verified 12/05/17 07:27 clarithromycin [From Biaxin] Allergy Rash/Hives Verified 12/05/17 07:27 egg Allergy Diarrhea Verified 12/05/17 07:27 gluten Allergy constipatio Verified 12/05/17 07:27 n Milk Containing Products Allergy Diarrhea Verified 12/05/17 07:27 [Dairy] Surgical - Exam Vital Signs Temp Pulse Resp BP Pulse Ox 98.7 F 67 16 130/62 99 12/05/17 07:10 12/05/17 07:10 12/05/17 07:10 12/05/17 07:10 12/05/17 07:10 - General well developed, no distress - Eyes PERRL - ENT normal pinna - Neck no masses - Respiratory normal expansion - Cardiovascular Rhythm: regular - Abdomen Abdomen: soft, non tender Assessment and Plan Assessment: Colitis lithiasis. We'll perform laparoscopic cholecystectomy
[2017-12-05] MEDS ORDERED: MIDAZOLAM 2 MG/2 ML VIAL ONE (08:29)
[2017-12-05] MEDS ORDERED: LIDOCAINE 1% INJ 10MG/ML (20 ML MDV) ONE (08:29)
[2017-12-05] MEDS ORDERED: GLYCOPYRROLATE 0.2 MG/ML 2 ML VIAL ONE (08:29)
[2017-12-05] MEDS ORDERED: ROCURONIUM BROMIDE 10 MG/ML 10 ML VIAL IV ONE (08:29)
[2017-12-05] MEDS ORDERED: KETOROLAC 30 MG/ML 1 ML VIAL ONE (08:29)
[2017-12-05] MEDS ORDERED: fentaNYL (PF) 50 MCG/ML 2 ML AMP ONE (08:29)
[2017-12-05] MEDS ORDERED: NEOSTIGMINE 1 MG/ML 10 ML VIAL ONE (08:29)
[2017-12-05] MEDS ORDERED: SUCCINYLCHOLINE CHLORIDE 100 MG/5 ML SYR IV ONE (08:29)
[2017-12-05] MEDS ORDERED: PROPOFOL 10 MG/ML 20 ML VIAL IV ONE (08:29)
[2017-12-05] MEDS ORDERED: BUPIVACAIN-EPI 0.5%-1:200,000 30 ML VIAL SQ ONE (08:56)
[2017-12-05 09:41] VITALS: TEMP 97
[2017-12-05] MEDS: HYDROmorphone 1 MG/ML 1 ML SYRINGE IVP ONE ×2 (09:48→09:53)
--- NOTE | 2017-12-05 09:50 | P.OP ---
Date of Procedure: 12/05/17 Preoperative Diagnosis: Cholelithiasis Postoperative Diagnosis: Cholelithiasis Cholecystitis Procedure(s) Performed: Laparoscopic cholecystectomy Anesthesia: EWELINA Surgeon: Te Goodson Estimated Blood Loss (ml): 5 Pathology: other (Gallbladder) Condition: stable Disposition: PACU Description of Procedure: The patient was placed on the operating table. The patient received a general endotracheal tube anesthesia. The patients abdomen was prepped and draped in the usual sterile fashion. Through an infraumbilical stab incision, the fascia of the anterior abdominal wall was grasped with a pair of Kochers and then the Veress needle was placed in the peritoneal cavity. Position of the Veress needle was confirmed with positive drop test. The abdomen was then insufflated. After adequate insufflation, the 10 mm trocar was placed in the peritoneal cavity. Following this the laparoscope was placed in the peritoneal cavity. The patient was placed in the head-up, right side up position and then a 5 mm trocar was placed in the right lateral and right subcostal position under direct visualization. A 8 mm trocar was placed in the epigastric position. The gallbladder was grasped in the fundus and infundibulum. Traction on the gallbladder was placed in the lateral and the cephalad positions. The triangle of Calot was visualized.. The cystic duct was bluntly dissected until the union of the cystic duct and common bile duct was seen. The cystic duct was then divided and sealed with the Harmonic scissors. A PDS Endoloop was then placed throughout the cystic duct stump. The cystic artery divided and sealed with the Harmonic scissors. The gallbladder was then removed from the liver bed using Harmonic scissors. The gallbladder was then extracted through the epigastric port site. Operative field was checked for any bleeding spots and Harmonic scissors was used to coagulate the liver bed. The abdomen was irrigated. The trocars were removed. The skin was closed using interrupted 3-0 Vicryl suture. Dermabond dressing were applied. The patient tolerated the procedure well.
[2017-12-05 09:53] VITALS: RESP 16
[2017-12-05] MEDS ORDERED: LACTATED RINGERS 1,000 ML IV ONE ×2 (10:06)
[2017-12-05] MEDS ORDERED: HYDROcodone/APAP 7.5-325MG 1 EACH TAB PO ONE (10:40)
[2017-12-05 11:22] VITALS: BP 105/69; PULSE 60
--- NOTE | 2017-12-09 07:39 | CDI ---
OP PHYSICIAN DOCUMENTATION CLARIFICATION REQUEST Date: 12/09/17 CDS/Plate Inspector Name: Genoveva Prather Phone: If any questions, call Caren Locke [employer] at [phone] Patient Name: Caren Lr Admit Date: 12/05/17 Discharge Date: 12/05/17 ATTENTION: The [facility] Coding Staff appreciate your assistance in clarifying documentation. Please respond to the clarification below the line at the bottom and electronically sign. The [facility] Coding staff will review the response and follow-up if needed. Please note: Queries are made part of the Legal Health Record. If you have any questions, please contact the [employer]. Dear Dr. Goodson, Please provide clarification as to all procedures performed. Pathology report states specimen B was a hernia sac. But No indication on cholecystectomy report or a second report indicates that a hernia repair was performed. Please clarify. Thank you for your kind consideration. Operative note addendum made MTDD
== END 2017-12-05 11:35 | disposition home or self-care (01) ==
LOC: OR 06:38
PROVIDERS: ATTEND Surgery
DX: K80.10 Calculus of gallbladder with chronic cholecystitis without obstruction (principal); K42.9 Umbilical hernia without obstruction or gangrene; K21.9 Gastro-esophageal reflux disease without esophagitis; M19.90 Unspecified osteoarthritis, unspecified site; Z86.718 Personal history of other venous thrombosis and embolism; K90.0 Celiac disease; Z98.84 Bariatric surgery status; Z79.899 Other long term (current) drug therapy; Z88.1 Allergy status to other antibiotic agents; Z91.012 Allergy to eggs; Z91.02 Food additives allergy status; Z91.011 Allergy to milk products
CPT/HCPCS: 47562; 81025; 88304; 88302; J2250; J1644; J1100; J2710; J2405; J2001; J3010; J1885; J1170; J0330; J2704

== ENCOUNTER → 2019-01-25 | Outpatient (CLI) | payer OTHER ==
--- NOTE | 2019-01-25 14:29 | XR ---
EXAMINATION TYPE: XR ankle complete 3 views LT, XR tibia fibula 2 views LT, XR knee complete 3 views LT DATE OF EXAM: 01/25/2019 COMPARISON: NONE HISTORY: 48-year-old female pain and contusion after fall FINDINGS: Left knee: Underlying small knee joint effusion. Mild degenerative spurring in the medial and lateral compartments. No acute fracture, subluxation, or dislocation. Left tibia/fibula: No acute fracture identified. Left ankle: Moderate sized plantar calcaneal spur. Chronically fragmented and enthesophytes at the Achilles inser tion. Ankle mortise is congruent with preservation of the distal tibiofibular overlap. Bony irregular ity along the lateral calcaneal process on the AP view could reflect age-indeterminate injury of the originating fibers of the extensor digitorum brevis. Otherwise, no acute fracture, subluxation, dislo cation seen. Some soft tissue swelling along the dorsal ankle and hindfoot. Os peroneum noted. IMPRESSION: 1. Left knee: Small knee joint effusion. No acute osseous abnormality seen. If concern for internal d erangement, MRI can be performed. 2. Tibia/fibula without acute osseous abnormal body seen. 3. Ankle: Some bony irregularity along the lateral calcaneus on the frontal view could represent an a ge indeterminate avulsion injury of the extensor digitorum brevis. Clinically correlate. There is bernardo e dorsal mid to hindfoot soft tissue swelling and a plantar calcaneal spur.
--- NOTE | 2019-01-25 15:09 | XR ---
EXAMINATION TYPE: XR foot complete LT DATE OF EXAM: 01/25/2019 COMPARISON: NONE HISTORY: 48-year-old female with pain after fall TECHNIQUE: 3 views FINDINGS: Subtle curvilinear densities projecting along the dorsal aspect of the talar head with overlying soft tissue swelling. Moderate-sized plantar calcaneal spur. And os peroneum is noted. Some subtle lucenc y along the distal lateral corner of the calcaneus on the AP view otherwise, no acute fracture, sublu xation, dislocation. IMPRESSION: 1. Subtle curvilinear density dorsal talar head with overlying soft tissue swelling. Small capsular a vulsion fracture difficult to exclude. 2. Some lucency along the distal lateral corner of the calcaneus. Correlate for any point tenderness here to exclude a subtle nondisplaced chip versus avulsion fracture.
== END ==
LOC: RADXRMAIN 13:29
PROVIDERS: ATTEND Emergency Medicine
DX: M79.89 Other specified soft tissue disorders (principal); M25.461 Effusion, right knee; M25.462 Effusion, left knee; R93.7 Abnormal findings on diagnostic imaging of other parts of musculoskeletal system